=== PATIENT | male | born 1955 | race Caucasian/White ===

== ENCOUNTER 2016-12-03 09:17 | Emergency (ER) | payer OTHER ==
[~2016-12-03] VITALS: Ht 195.6 cm; Wt 100.0 kg
[~2016-12-03 09:17] MED LIST: METF500T PO; PRED20 PO; TRAM50TA PO
[2016-12-03 09:18] VITALS: BP 135/74; PULSE 74; RESP 17; TEMP 98; O2SAT 98
[2016-12-03] MEDS ORDERED: CLIN1CAP6 PO (09:37)
--- NOTE | 2016-12-03 09:38 | PD ---
HPI Chief Complaint: Skin Problem Time Seen by Provider: 09:32 Travel History International Travel<30 days: No Contact w/Intl Traveler<30days: No Traveled to known affect area: No History of Present Illness HPI A shows a 60-year-old diabetic male presents emergency Department with complaint of swelling on the buttock. For the last 3-4 days patient has noticed swelling on the left buttock. He also notes small areas on the face. None of these have been draining. The area on the buttock is the most warm, red and painful. PFSH Past Medical History Cardiovascular Problems: No Diabetes: Yes Genitourinary: No Musculoskeletal: No Neurologic: No Respiratory: No Shingles: Yes Past Surgical History Abdominal Surgery: No Cardiac Surgery: No Genitourinary Surgery: No Thoracic Surgery: Yes Tonsillectomy: Yes Social History Alcohol Use: No Tobacco Use: No Substance Use: No ([place] dip) Allergies-Medications (Allergen,Severity, Reaction): Coded Allergies: No Known Allergies (Verified , 08/16/16) Reported Meds & Prescriptions Reported Meds & Active Scripts Active Reported Prednisone 20 Mg Tab 25 Mg PO BID Tramadol (Tramadol HCl) 50 Mg Tab 50 Mg PO Q6H PRN Metformin (Metformin HCl) 500 Mg Tab 500 Mg PO BIDPC With meals Review of Systems Except as stated in HPI: all other systems reviewed are Neg Physical Exam Narrative GENERAL: Well-appearing male in no acute distress SKIN: Focused skin assessment warm/dry. There are 2 scabbed over lesions on the left side of the face consistent with healing abscesses. On the left buttock there is a abscess with surrounding erythema and induration HEAD: Normocephalic. EYES: No scleral icterus. No injection or drainage. ENT: Mucous membranes pink and moist. NECK: Supple CARDIOVASCULAR: Regular rate and rhythm. RESPIRATORY: No accessory muscle use. MUSCULOSKELETAL: Moves all extremities normally NEUROLOGICAL: Awake and alert. Normal speech. PSYCHIATRIC: Appropriate mood and affect; insight and judgment normal. Data Data Last Documented VS Vital Signs Date Time Temp Pulse Resp B/P Pulse Ox O2 Delivery O2 Flow Rate FiO2 12/03/16 09:18 98.0 74 17 135/74 98 MDM Medical Decision Making Medical Screen Exam Complete: Yes Emergency Medical Condition: Yes Medical Record Reviewed: Yes Differential Diagnosis 60-year-old male here with complaint of swelling on the buttock. Exam is consistent with abscess and mild surrounding cellulitis. This is remote to the anal verge and I do not believe to be a perirectal abscess. Narrative Course abscess was incised and drained, please see procedure note. Patient discharged home with antibiotics. Diagnosis Primary Impression: Abscess of left buttock Referrals: Primary Care Physician 2 days Patient Instructions: Abscess (GEN), General Instructions Additional Instructions: Finish antibiotics as prescribed. Follow-up with primary care provider in 2 days for packing removal. Return to the ER for the warning signs discussed. Med/Other Pt SpecificInfo: Prescription(s) given Scripts Clindamycin 300 Mg [id number] Mg PO TID 7 Days Ref 0 Prov:Xena Goodwin MD 12/03/16 Disposition: 01 DISCHARGE HOME Condition: Stable Xena Goodwin MD Dec 03, 2016 09:38
[2016-12-03] MEDS ORDERED: METF1000 PO (09:43)
[2016-12-03] MEDS ORDERED: LIDOCAINE 1%/EPINEPHrine 1:100,000 SOLN 20 ML VIAL INFIL ONE (09:45)
--- NOTE | 2016-12-03 09:57 | PD ---
Physical Exam Time Seen by Provider: 09:55 Narrative I incised and drained the abscess to the left buttocks. Data Data Last Documented VS Vital Signs Date Time Temp Pulse Resp B/P Pulse Ox O2 Delivery O2 Flow Rate FiO2 12/03/16 09:18 98.0 74 17 135/74 98 Orders Lidocai-Epi 1%-1:100,000 Inj (Xylocaine- (12/03/16 09:45) MDM Supervised Visit with CHRISTIANO: Yes Narrative Course I incised and drained the abscess to the left buttocks. See my procedure note. Procedures Procedure Narrative INCISION AND DRAINAGE OF ABSCESS: The area was prepped and was sterilely draped. A subcutaneous wheal of 1 % Xylocaine with epinephrine with a total number 2 mL was used to anesthetize the area properly. A number 11 scalpel was used to make a 1 -cm incision across the area of the abscess. The abscess was drained, complex loculations were broken down, and irrigated with normal saline. Cultures were obtained. Quarter inch iodoform packing was placed in the wound. Sterile dressing applied. Patient advised to have packing removed in two days. Diagnosis Primary Impression: Abscess of left buttock Referrals: Primary Care Physician 2 days Patient Instructions: General Instructions, Abscess (GEN) Additional Instruction: Finish antibiotics as prescribed. Follow-up with primary care provider in 2 days for packing removal. Return to the ER for the warning signs discussed. Scripts Clindamycin 300 Mg [id number] Mg PO TID 7 Days Ref 0 Prov:Xena Goodwin MD 12/03/16 Disposition: 01 DISCHARGE HOME Condition: Stable Jasmine Fairchild Dec 03, 2016 09:57
== END 2016-12-03 10:46 | disposition home or self-care (01) ==
LOC: NEPB 09:17
DX: L02.31 Cutaneous abscess of buttock (principal); E11.9 Type 2 diabetes mellitus without complications
CPT/HCPCS: 10061

== ENCOUNTER 2018-03-03 04:44 | Emergency (ER) | payer OTHER ==
[~2018-03-03] VITALS: Ht 193 cm; Wt 85.0 kg
[~2018-03-03 04:44] MED LIST changes: +CLIN300C5 PO; +METF1000 PO; -METF500T PO; -PRED20 PO; -TRAM50TA PO
[2018-03-03 04:54] VITALS: BP 174/84; PULSE 88; RESP 18; TEMP 97.6; O2SAT 98
[2018-03-03] MEDS ORDERED: SODIUM CHLOR 0.9% 1000 ML INJ 1,000 ML IV ONE ×2 (05:45→07:30)
[2018-03-03] MEDS ORDERED: PIPERACIL-TAZO 3.375 GM PREMIX 50 ML IV ONE (05:45)
[2018-03-03] MEDS ORDERED: VANCOMYCIN INJ 1,000 MG in SODIUM CHLOR 0.9% 250 ML INJ 250 ML IV ONE (05:45)
[2018-03-03 06:30] VITALS: RESP 20; O2SAT 98
[2018-03-03 06:39] LABS: BASOPHIL % 0.9 % (0.0-2.0); EOSINOPHIL # 0.8 TH/MM3 (0-0.4); EOSINOPHIL % 15.2 % (0.0-4.0); HEMATOCRIT 37.4 % (39.0-51.0); HEMOGLOBIN 12.7 GM/DL (13.0-17.0); LYMPH % 15.6 % (9.0-44.0); LYMPHOCYTE # 0.8 TH/MM3 (1.0-4.8); MEAN CELL VOLUME 83.7 FL (80.0-100.0); MEAN CORPUSCULAR HEMOGLOBIN 28.4 PG (27.0-34.0); MEAN PLATELET VOLUME 10.7 FL (7.0-11.0); MONO % 9.6 % (0.0-8.0); MONOCYTE # 0.5 TH/MM3 (0-0.9); NEUT % 58.7 % (16.0-70.0); PLATELET COUNT 106 TH/MM3 (150-450); RED BLOOD COUNT 4.46 MIL/MM3 (4.50-5.90); WHITE BLOOD COUNT 5.1 TH/MM3 (4.0-11.0)
[2018-03-03 06:47] LABS: PROTHROMBIN TIME - PATIENT 10.3 SEC (9.8-11.6)
--- NOTE | 2018-03-03 07:08 | PD ---
HPI Chief Complaint: Skin Problem Time Seen by Provider: 05:32 Travel History International Travel<30 days: No Contact w/Intl Traveler<30days: No Traveled to known affect area: No History of Present Illness HPI The patient is a 62 year old male who presents to the [facility] emergency department with a history of noticing what appeared to be an insect bite along the right posterior leg 2 weeks ago. He reports that it was initially itchy and then began to drain blood and pus. He reports that he did squeeze the area was able to express some pus. He reports that it now spontaneously drained, however the area of redness has increased in size and is now painful. The patient reports having a subjective fever today. He denies having any chills. He denies having any nausea, vomiting, or diarrhea. The patient reports that he has diabetes. He has not been taking his metformin for the last 2 days. He does not have a particular reason for not taking it. The patient has not been checking his blood sugar. He denies having any polyuria or polydipsia. He reports that he had pancakes and syrup prior to arrival. He expects that his blood sugar will be elevated. Otherwise on review of systems, the patient denies having any cough, congestion, neck pain, chest pain, shortness of breath , abdominal pain, vomiting, diarrhea, urinary symptoms, or neurologic symptoms. Patient denies any prior history of DVT or PE. The patient reports that he does have swelling to the right leg associated with this. [facility] Past Medical History Narrative Medical The patient's past medical history is significant for diabetes mellitus. He denies any prior history of hypertension. He denies any prior history of skin infections or MRSA. Cardiovascular Problems: No Diabetes: Yes Patient Takes Glucophage: No Gastrointestinal Disorders: No Genitourinary: No Musculoskeletal: No Neurologic: No Respiratory: No Immunizations Current: Yes Shingles: Yes Tetanus Vaccination: Unknown Influenza Vaccination: No Past Surgical History Narrative Surgical The patient's past surgical history is significant for back surgery, right knee surgery, tonsillectomy. Abdominal Surgery: No Cardiac Surgery: No Genitourinary Surgery: No Neurologic Surgery: Yes (BACK) Thoracic Surgery: Yes Tonsillectomy: Yes Other Surgery: No Social History Alcohol Use: No Tobacco Use: No Substance Use: No Allergies-Medications (Allergen,Severity, Reaction): Coded Allergies: No Known Allergies (Verified Adverse Reaction, Unknown, 03/03/18) Reported Meds & Prescriptions Reported Meds & Active Scripts Active Clindamycin (Clindamycin HCl) 300 Mg Cap 300 Mg PO TID 7 Days Reported Metformin (Metformin HCl) 1,000 Mg Tab 1,000 Mg PO BIDPC With meals Review of Systems Except as stated in HPI: all other systems reviewed are Neg General / Constitutional: Positive: Fever Eyes: No: Visual changes HENT: No: Headaches Cardiovascular: No: Chest Pain or Discomfort Respiratory: No: Shortness of Breath Gastrointestinal: No: Nausea, Vomiting, Diarrhea, Abdominal Pain Genitourinary: No: Dysuria Musculoskeletal: Positive: Edema, Pain Skin: Positive Rash Neurologic: No: Weakness, Focal Abnormalities, Change in Mentation, Slurred Speech, Sensory Disturbance Psychiatric: No: Depression Endocrine: No: Polydipsia Hematologic/Lymphatic: No: Easy Bruising Physical Exam Narrative General: The patient is a well-developed well-nourished male in no acute distress. Head and Neck exam: Head is normocephalic atraumatic. Eyes: EOMI, pupils are equal round and reactive to light. Nose: Midline septum with pink mucous membranes Mouth: Dentition unremarkable. Moist mucus membranes. Posterior oropharynx is not erythematous. No tonsillar hypertrophy. Uvula midline. Airway patent. Neck: No palpable lymphadenopathy. No nuchal rigidity. No thyromegaly. Cardiovascular: Regular rate and rhythm without murmurs, gallops, or rubs. No pulse deficit to the extremities on simultaneous auscultation and palpation of his radial artery. Lungs: Clear to auscultation bilaterally. No wheezes, rhonchi, or rales. Abdomen: Soft, without tenderness to palpation in all 4 quadrants of the abdomen. No guarding, rebound, or rigidity. Normal bowel sounds are audible. No tenderness on palpation of McBurney's point. Extremities: No clubbing or cyanosis. The patient has no significant edema of the left leg. The patient has trace to 1+ edema of the right lower extremity. This is the area of interest with along the posterior calf circular area of erythema with central appearing excoriation, no active drainage at this time. No fluctuance or pointing. This is warm to touch and exquisitely tender to palpation. 2+ pulses in all 4 extremities. Back: No spinous process tenderness to palpation. No costovertebral angle tenderness to palpation. Neurologic Exam: Grossly nonfocal. Skin Exam: No other rash noted. Intact skin that is warm and dry. Data Data Last Documented VS Vital Signs Date Time Temp Pulse Resp B/P (MAP) Pulse Ox O2 Delivery O2 Flow Rate FiO2 03/03/18 06:30 20 98 Room Air 03/03/18 04:54 97.6 88 174/84 (114) Orders Orders Electrocardiogram (03/03/18 05:45) Complete Blood Count With Diff (03/03/18 05:45) Comprehensive Metabolic Panel (03/03/18 05:45) Prothrombin Time / Inr (Pt) (03/03/18 05:45) Act Partial Throm Time (Ptt) (03/03/18 05:45) C-Reactive Protein (Crp) (03/03/18 05:45) Lipase (03/03/18 05:45) Magnesium (Mg) (03/03/18 05:45) Blood Gas Venous Ph (03/03/18 05:45) Beta Hydroxybutyrate (Acetone) (03/03/18 05:45) Iv Access Insert/Monitor (03/03/18 05:45) Ecg Monitoring (03/03/18 05:45) Oximetry (03/03/18 05:45) Us Leg Venous Doppler (03/03/18 05:45) Us Leg Soft Tissue (03/03/18 ) Piperacil-Tazo 3.375 Gm Premix (Zosyn 3. (03/03/18 05:45) Vancomycin Inj (Vancomycin Inj) (03/03/18 05:45) Sodium Chlor 0.9% 1000 Ml Inj (Ns 1000 M (03/03/18 05:45) Blood Culture (03/03/18 05:45) Lactic Acid Sepsis Protocol (03/03/18 05:45) Labs Laboratory Tests Test 03/03/18 06:20 03/03/18 06:25 Lactic Acid Level 1.0 mmol/L White Blood Count 5.1 TH/MM3 Red Blood Count 4.46 MIL/MM3 Hemoglobin 12.7 GM/DL Hematocrit 37.4 % Mean Corpuscular Volume 83.7 FL Mean Corpuscular Hemoglobin 28.4 PG Mean Corpuscular Hemoglobin Concent 34.0 % Red Cell Distribution Width 13.0 % Platelet Count 106 TH/MM3 Mean Platelet Volume 10.7 FL Neutrophils (%) (Auto) 58.7 % Lymphocytes (%) (Auto) 15.6 % Monocytes (%) (Auto) 9.6 % Eosinophils (%) (Auto) 15.2 % Basophils (%) (Auto) 0.9 % Neutrophils # (Auto) 3.0 TH/MM3 Lymphocytes # (Auto) 0.8 TH/MM3 Monocytes # (Auto) 0.5 TH/MM3 Eosinophils # (Auto) 0.8 TH/MM3 Basophils # (Auto) 0.0 TH/MM3 CBC Comment DIFF FINAL Differential Comment Prothrombin Time 10.3 SEC Prothromb Time International Ratio 1.0 RATIO Activated Partial Thromboplast Time 24.2 SEC MDM Medical Decision Making Medical Screen Exam Complete: Yes Emergency Medical Condition: Yes Medical Record Reviewed: Yes Differential Diagnosis Cellulitis, versus deep abscess, versus DVT, versus bacteremia Narrative Course During the course of the patient's emergency department visit, the patient's history, examination, and differential diagnosis were reviewed with the patient. The patient was placed on a pack press operator with oximetry and frequent blood pressure monitoring. The patient had IV access obtained and blood work sent for analysis. The patient had an EKG done on arrival that shows a sinus rhythm heart rate of 80, QRS duration is [address] segment elevation. Nonspecific ST-T wave abnormalities are noted. The patient was initially provided normal saline 1 L IV fluid bolus, Zosyn 3.375 g IV, vancomycin 1 g IV. The patient's laboratory studies were reviewed and remarkable for a white count of 5.1, hemoglobin 12.7, platelets 106 with 9.6 monocytes, eosinophils 15.2. Lactic acid is 1.0, PT 10.3, PTT 24.2, CMP and beta hydroxybutyrate are pending at the conclusion of my shift along with an ultrasound of the right lower extremity to rule out DVT and ultrasound to rule out deep abscess. The patient's case will be checked out to the oncoming emergency physician to disposition the patient based on the conclusion of his workup. Diagnosis Primary Impression: Skin infection Rosanna Woo MD Mar 03, 2018 07:08
[2018-03-03 07:18] LABS: ALBUMIN 2.7 GM/DL (3.4-5.0); ALKALINE PHOSPHATASE 72 U/L (45-117); ALT (GPT) 50 U/L (12-78); AST (GOT) 39 U/L (15-37); BICARBONATE 19.6 MEQ/L (21.0-32.0); BLOOD UREA NITROGEN 31 MG/DL (7-18); C-REACTIVE PROTEIN 0.51 MG/DL (0.00-0.30); CHLORIDE 103 MEQ/L (98-107); CREATININE 1.32 MG/DL (0.60-1.30); GLOMERULAR FILTRATION RATE 55 ML/MIN (>89); GLUCOSE,RANDOM 445 MG/DL (74-106); MAGNESIUM 1.8 MG/DL (1.5-2.5); SODIUM (NA) 132 MEQ/L (136-145); TOTAL BILIRUBIN ADULT 0.3 MG/DL (0.2-1.0); TOTAL PROTEIN 6.7 GM/DL (6.4-8.2)
[2018-03-03] MEDS ORDERED: TETANUS/DIPHTHERIA TOXOID ADULT 0.5 ML VIAL IM ONE (07:30)
[2018-03-03] MEDS ORDERED: INSULIN HUMAN REGULAR 1,000 UNITS/10 ML VIAL SQ ONE (07:30)
--- NOTE | 2018-03-03 07:56 | PD ---
Physical Exam Date Seen by Provider: Mar 03, 2018 Data Data Last Documented VS Vital Signs Date Time Temp Pulse Resp B/P (MAP) Pulse Ox O2 Delivery O2 Flow Rate FiO2 03/03/18 06:30 20 98 Room Air 03/03/18 04:54 97.6 88 174/84 (114) Orders Orders Electrocardiogram (03/03/18 05:45) Complete Blood Count With Diff (03/03/18 05:45) Comprehensive Metabolic Panel (03/03/18 05:45) Prothrombin Time / Inr (Pt) (03/03/18 05:45) Act Partial Throm Time (Ptt) (03/03/18 05:45) C-Reactive Protein (Crp) (03/03/18 05:45) Lipase (03/03/18 05:45) Magnesium (Mg) (03/03/18 05:45) Blood Gas Venous Ph (03/03/18 05:45) Beta Hydroxybutyrate (Acetone) (03/03/18 05:45) Iv Access Insert/Monitor (03/03/18 05:45) Ecg Monitoring (03/03/18 05:45) Oximetry (03/03/18 05:45) Us Leg Venous Doppler (03/03/18 05:45) Us Leg Soft Tissue (03/03/18 ) Piperacil-Tazo 3.375 Gm Premix (Zosyn 3. (03/03/18 05:45) Vancomycin Inj (Vancomycin Inj) (03/03/18 05:45) Sodium Chlor 0.9% 1000 Ml Inj (Ns 1000 M (03/03/18 05:45) Blood Culture (03/03/18 05:45) Lactic Acid Sepsis Protocol (03/03/18 05:45) Insulin Human Regular Inj (Novolin R Inj (03/03/18 07:30) Sodium Chlor 0.9% 1000 Ml Inj (Ns 1000 M (03/03/18 07:30) Tetanus/Diphtheria Tox Adult (Tetanus/Di (03/03/18 07:30) Blood Glucose (03/03/18 08:36) Blood Glucose (03/03/18 09:06) Labs Laboratory Tests Test 03/03/18 06:20 03/03/18 06:25 03/03/18 07:30 Lactic Acid Level 1.0 mmol/L White Blood Count 5.1 TH/MM3 Red Blood Count 4.46 MIL/MM3 Hemoglobin 12.7 GM/DL Hematocrit 37.4 % Mean Corpuscular Volume 83.7 FL Mean Corpuscular Hemoglobin 28.4 PG Mean Corpuscular Hemoglobin Concent 34.0 % Red Cell Distribution Width 13.0 % Platelet Count 106 TH/MM3 Mean Platelet Volume 10.7 FL Neutrophils (%) (Auto) 58.7 % Lymphocytes (%) (Auto) 15.6 % Monocytes (%) (Auto) 9.6 % Eosinophils (%) (Auto) 15.2 % Basophils (%) (Auto) 0.9 % Neutrophils # (Auto) 3.0 TH/MM3 Lymphocytes # (Auto) 0.8 TH/MM3 Monocytes # (Auto) 0.5 TH/MM3 Eosinophils # (Auto) 0.8 TH/MM3 Basophils # (Auto) 0.0 TH/MM3 CBC Comment DIFF FINAL Differential Comment Prothrombin Time 10.3 SEC Prothromb Time International Ratio 1.0 RATIO Activated Partial Thromboplast Time 24.2 SEC Blood Urea Nitrogen 31 MG/DL Creatinine 1.32 MG/DL Random Glucose 445 MG/DL Total Protein 6.7 GM/DL Albumin 2.7 GM/DL Calcium Level 9.0 MG/DL Magnesium Level 1.8 MG/DL Alkaline Phosphatase 72 U/L Aspartate Amino Transf (AST/SGOT) 39 U/L Alanine Aminotransferase (ALT/SGPT) 50 U/L Total Bilirubin 0.3 MG/DL Sodium Level 132 MEQ/L Potassium Level 4.8 MEQ/L Chloride Level 103 MEQ/L Carbon Dioxide Level 19.6 MEQ/L Anion Gap 9 MEQ/L Estimat Glomerular Filtration Rate 55 ML/MIN C-Reactive Protein 0.51 MG/DL Lipase 226 U/L B-Hydroxybutyrate 0.11 MMOL/L Venous Blood pH 7.40 [facility] Medical Record Reviewed: Yes Supervised Visit with CHRISTIANO: No Narrative Course Patient sent out to me by Dr. Woo at change of shift. Patient pending ultrasound of soft tissue of legs as well as Doppler ultrasound for evaluation of possible DVT. Patient is a 62-year-old male with history of diabetes currently taking metformin for this but has been noncompliant and has not taken his metformin for the past week. Patient reports that 2-1/2 weeks ago, he thinks that he may have had an insect bite to his right posterior calf. Patient reports that he noticed little "bump" and has been using a "clean" razor blade to open and drain this "bump." Patient reports that this area has increased in size and is painful and has been having subjective fevers and chills at home Patient's tetanus is not up-to-date, reports last tetanus vaccination was about 20 years ago. I did review with patient that today, we will update his tetanus. On physical exam, patient does have a nonfluctuant circumferential abscess to the right posterior calf, there is no active draining or areas of fluctuance at this time. It is tender to touch. Patient has received a dose of IV vancomycin as well as IV Zosyn, tetanus was updated. Vital Signs Date Time Temp Pulse Resp B/P (MAP) Pulse Ox O2 Delivery O2 Flow Rate FiO2 03/03/18 06:30 20 98 Room Air 03/03/18 04:54 97.6 88 18 174/84 (114) 98 CBC & BMP Diagram 03/03/18 06:25 Total Protein 6.7, Albumin 2.7 L, Calcium Level 9.0, Magnesium Level 1.8, Alkaline Phosphatase 72, Aspartate Amino Transf (AST/SGOT) 39 H, Alanine Aminotransferase (ALT/SGPT) 50, Total Bilirubin 0.3 WBC 5.1, hemoglobin 12.7, hematocrit 37.4, platelets 106 (baseline when compared to previous lab work) Sodium 132, chloride 103, potassium 4.8, BUN 31, creatinine 1.32, glucose 445 Patient reports that he has been noncompliant with his metformin, he did eat waffles with syrup this morning, understand that his blood sugar is 445, subcu insulin as well as 2 L of IV fluids were ordered. VBG with a pH of 7.50, beta hydroxybutyrate 0.11, patient is not in DKA Patient currently pending ultrasound. Last Impressions Lower Extremity Ultrasound 03/03/18 0545 Signed Impressions: CONCLUSION: 1. . No sonographic or Doppler findings of deep venous thrombosis. 2. Prominent right inguinal lymph nodes are likely reactive. Largest measures 2.8 x 1.4 x 1.0 cm. Lower Extremity Ultrasound 03/03/18 0000 Signed Impressions: CONCLUSION: 1. Very small complex fluid collection in the subcutaneous soft tissues in the posterior right calf. Diagnostic considerations include a small seroma or vernon y abscess. 2. Associated regional edema and hyperemia Patient with no evidence of DVT on his leg ultrasound, soft tissue ultrasound of his lower extremity does show an early abscess versus seroma. Patient has already been given an IV dose of antibiotics, plan to try outpatient treatment for his abscess with surrounding cellulitis. Patient understands importance of compliance with taking his antibiotics, he also understands the importance of taking his metformin for his diabetes and for proper blood sugar control. Discussed with patient need for reevaluation in the ER or by his primary care doctor in 48 hours, signs and symptoms of when to return to the emergency room was reviewed with the patient in detail. BS 289 after IVF, encouraged patient to monitor his blood sugar carefully. He will apply warm compresses to his abscess and return to the emergency room in 48 hours for reevaluation. Diagnosis Primary Impression: Skin infection Additional Impressions: Hyperglycemia due to type 2 diabetes mellitus Renal insufficiency Thrombocytopenia Cellulitis and abscess of leg Patient Instructions: General Instructions Additional Instruction: Please provide patient with a copy of their lab work and studies at discharge* * Please follow up with your primary care doctor in 2-3 days Return to the ER if symptoms worsen or progress or if you develop any fever or chills Return to the ER as needed Return to the emergency room or to your primary care doctor in 48 hours for reevaluation of your infection, apply warm compresses to your abscess Please take all antibiotics as prescribed Please monitor your blood sugars carefully, taking metformin as prescribed, please watch your sugar intake as your blood sugar was elevated today. Please have your ultrasound of your leg repeated in 1 week if swelling persists Please follow-up with all cultures from today Med/Other Pt SpecificInfo: Prescription(s) given Scripts Mupirocin Topical (Bactroban Topical) 22 Gm Cream 1 APPLIC TOPICAL BID for Mgmt Bacterial Infection, #1 TUBE 0 Refills Prov: Sheree Spann DO 03/03/18 Cephalexin (Keflex) 500 Mg Cap 500 MG PO Q6H for Infection for 10 Days, #40 CAP 0 Refills Prov: Sheree Spann DO 03/03/18 Sulfamethoxazole-Trimethoprim (Bactrim DS) 800-160 Mg Tab 1 TAB PO BID for Infection, #20 TAB 0 Refills Prov: Sheree Spann DO 03/03/18 Disposition: 01 DISCHARGE HOME Condition: Stable Sheree Spann DO Mar 03, 2018 07:56
--- NOTE | 2018-03-03 08:22 | RADRPT ---
EXAM DATE: 03/03/2018 8:15 AM EDT AGE/SEX: 62 years / Male INDICATIONS: Right leg pain and swelling. CLINICAL DATA: This is the patient's initial encounter. Patient reports that signs and symptoms have been present for 2 weeks and indicates a pain score of 3/10. Location: Laterality: MEDICAL/SURGICAL HISTORY: Diabetes. Herpes zoster. Tonsillectomy. Right knee surgery. Back theodora celi. COMPARISON: No prior exams available for comparison. FINDINGS: Sonographic images show regional subcutaneous soft tissue edema with hyperemia. Centrally, there is a complex, 1.4 x 1.4 x 0.8 cm fluid collection. Findings could represent a small seroma or abscess CONCLUSION: 1. Very small complex fluid collection in the subcutaneous soft tissues in the posterior right calf. Diagnostic considerations include a small seroma or early abscess. 2. Associated regional edema and hyperemia Electronically signed by: Gerry Freitas MD 03/03/2018 8:21 AM EDT
--- NOTE | 2018-03-03 08:24 | RADRPT ---
EXAM DATE: 03/03/2018 8:19 AM EDT AGE/SEX: 62 years / Male INDICATIONS: Right leg redness and swelling. CLINICAL DATA: This is the patient's initial encounter. Patient reports that signs and symptoms have been present for 2 weeks and indicates a pain score of 3/10. MEDICAL/SURGICAL HISTORY: Diabetes. Herpes zoster. Tonsillectomy. Right knee surgery. Back theodora celi. COMPARISON: No prior exams available for comparison. TECHNIQUE: Venous ultrasound of both lower extremities was performed from the inguinal ligament to t he proximal calf. Real-time, color Doppler and spectral tracing, compression and augmentation techni ques were used. FINDINGS: Normal compression of the deep venous system from the inguinal region to the proximal calf . No echogenic clot is seen. Normal response of the venous system to augmentation and respiration. Multiple prominent lymph nodes are identified in the right groin region, the largest measuring 2.8 x 1.4 x 1.0 cm CONCLUSION: 1. . No sonographic or Doppler findings of deep venous thrombosis. 2. Prominent right inguinal lymph nodes are likely reactive. Largest measures 2.8 x 1.4 x 1.0 cm. Electronically signed by: Gerry Freitas MD 03/03/2018 8:22 AM EDT
[2018-03-03] MEDS ORDERED: MUPI2%T TOPICAL (08:40)
[2018-03-03] MEDS ORDERED: CEPH-460 PO (08:40)
[2018-03-03] MEDS ORDERED: BACT800T5 PO (08:40)
--- NOTE | 2018-03-03 13:24 | EKG ---
Date Performed: 03/03/2018 Time Performed: 06:30:27 PTAGE: 62 years EKG: Baseline artifact present Sinus rhythm NONSPECIFIC ST & T-WAVE ABNORMALITY BORDERLINE ECG Compared to prior electrocardiogram, probably No significant change. PREVIOUS TRACING : 08/16/2016 18.50 DOCTOR: Nathan Steward Interpretating Date/Time 03/03/2018 13:22:22
== END 2018-03-03 10:07 | disposition home or self-care (01) ==
LOC: NEPC 04:44
DX: L08.9 Local infection of the skin and subcutaneous tissue, unspecified (principal); L03.115 Cellulitis of right lower limb; E11.65 Type 2 diabetes mellitus with hyperglycemia; N28.9 Disorder of kidney and ureter, unspecified; D69.6 Thrombocytopenia, unspecified; R94.31 Abnormal electrocardiogram [ECG] [EKG]; M79.89 Other specified soft tissue disorders; Z91.14 Patient's other noncompliance with medication regimen; Z23 Encounter for immunization
CPT/HCPCS: 76882; 80053; 82010; 82800; 83605; 83690; 83735; 85025; 85610; 85730; 86140; 87040; 90471; 90714; 93005; 93971; 96365; 96366; 96368; 96372; 99285; J1815; J2543; J3370; J7030; J7050